=== PATIENT | female | born 1995 | race Caucasian/White ===

== ENCOUNTER 2019-11-27 19:08 | Emergency (ER) | payer BC, MEDICAID ==
[~2019-11-27] VITALS: Ht 160 cm; Wt 61.0 kg
[~2019-11-27 19:08] MED LIST: CITA20TA28 PO; CYCL-394 PO; IBUP-1573 PO
[2019-11-27] MEDS ORDERED: SILV50CR31 TOP (19:23)
[2019-11-27] MEDS ORDERED: CEPH250T PO (19:23)
[2019-11-27] MEDS ORDERED: LIDOcaine/epinephrine/tetracaine TOPICAL sol 3 ML syringe TOP ONE (19:25)
[2019-11-27] MEDS ORDERED: silver sulfadiazine cream 50gm TP ONE (19:25)
[2019-11-27 21:31] VITALS: BP 113/64
== END 2019-11-27 21:32 | disposition home or self-care (01) ==
LOC: ER 19:09
DX: T24.201A Burn of second degree of unspecified site of right lower limb, except ankle and foot, initial encounter (principal); Z79.899 Other long term (current) drug therapy
CPT/HCPCS: 16020; 99283; 99285

== ENCOUNTER 2020-12-12 01:37 | Emergency (ER) | payer MEDICAID ==
[~2020-12-12] VITALS: Ht 160 cm; Wt 81.8 kg
[2020-12-12 02:46] VITALS: BP 115/79
[2020-12-12 03:41] LABS: HCG SERUM QL NEGATIVE
[2020-12-12 03:53] LABS: D-DIMER 0.37 MG/L FEU (0-0.50)
--- NOTE | 2020-12-12 04:18 | NUR ---
PT SEEN, TREAT AND D/C BY PROVIDER
== END 2020-12-12 04:21 | disposition home or self-care (01) ==
LOC: ER 01:38
DX: U07.1 COVID-19 (principal)
CPT/HCPCS: 36415; 71045; 84703; 85379; 99284

== ENCOUNTER 2021-04-09 15:23 | Emergency (ER) | payer MEDICAID ==
[~2021-04-09] VITALS: Ht 157.5 cm; Wt 77.0 kg
[2021-04-09] MEDS ORDERED: METH4TAB3 PO (16:17)
[2021-04-09] MEDS ORDERED: triamcinolone acetonide 40mg/ml inj IM ONE (16:20)
== END 2021-04-09 16:48 | disposition home or self-care (01) ==
LOC: ER 15:24
DX: L23.7 Allergic contact dermatitis due to plants, except food (principal)
CPT/HCPCS: 96372; 99283; J3301

== ENCOUNTER → 2021-11-11 | Day surgery (SDC) | payer MEDICAID ==
[2021-11-03 14:05] LABS: BASOPHILS % (AUTO) 0.6 % (0-1); EOSINOPHILS # (AUTO) 0.1 X10'3 (0-0.9); LYMPHOCYTES # (AUTO) 2.2 X10'3 (1.1-4.8); MEAN CORPUSCULAR HEMOGLOBIN 28.2 PG (27.0-31.0); MEAN CORPUSCULAR HGB CONC 33.5 g/dL (33.0-36.5); MEAN CORPUSCULAR VOLUME 84.2 FL (78-98); MEAN PLATELET VOLUME 9.2 FL (7.4-10.4); MONOCYTES # (AUTO) 0.4 X10'3 (0-0.9); MONOCYTES % (AUTO) 5.7 % (2-12); NEUTROPHILS # (AUTO) 4.5 X10'3 (1.8-7.7); NEUTROPHILS % (AUTO) 61.7 % (42-75); PRE OP HEMATOCRIT 37.9 % (35.0-45.0); PRE OP HEMOGLOBIN 12.7 g/dL (12.0-16.0); PRE OP PLATELET COUNT 243 X10'3 (140-440); RED CELL DISTRIBUTION WIDTH 13.8 % (11.5-14.5)
[2021-11-03 14:18] LABS: ALBUMIN 3.2 G/DL (3.4-5.0); ALBUMIN/GLOBULIN RATIO 0.9 (1.1-1.5); ALKALINE PHOSPHATASE 56 IU/L (46-116); BLOOD UREA NITROGEN 12 MG/DL (7-18); BUN/CREATININE RATIO 15.2 (6.6-38.0); CALCIUM 8.5 MG/DL (8.5-10.1); CHLORIDE 105 MMOL/L (99-107); CREATININE 0.79 MG/DL (0.40-0.90); PRE OP ALT 16 U/L (30-65); PRE OP ANION GAP 7 (8-16); PRE OP AST 14 U/L (10-37); PRE OP BILIRUB, TOTAL 0.2 MG/DL (0.0-1.0); PRE OP GLUCOSE 144 MG/DL (70-104); PRE OP POTASSIUM 4.1 MMOL/L (3.4-5.1); PRE OP SODIUM 140 MMOL/L (135-145); TOTAL CARBON DIOXIDE 28.5 MMOL/L (24-32); TOTAL PROTEIN 6.9 G/DL (6.4-8.2); eGFR 87 ML/MIN
[2021-11-03 14:34] LABS: HCG SERUM QL NEGATIVE
[2021-11-11] VITALS (8 sets, daily range): BP systolic 94–125; BP diastolic 52–80
[~2021-11-11] VITALS: Ht 157.5 cm; Wt 83.0 kg
[~2021-11-11] MED LIST changes: +BIRTH CONTROL; +BUPIVAcaine/PF 2.5 mg/ml (0.25%) 30ml vial ONE; -CITA20TA28 PO; -CYCL-394 PO; +LIDOcaine 1%/PF 5ML 10 MG/ML VIAL ONE; +VALA500T PO; +ceFAZolin inj. 2,000 MG in dextrose 5%-water 100 ML IV ONE; +dexamethasone sod phosphate 4mg/ml inj. ONE; +famotidine 20mg tablet PO ONE; +fentaNYL/PF 50MCG/1 ML 2ML syringe IV PRN; +fentaNYL/PF 50MCG/1 ML 2ML syringe ONE; +glycopyrrolate 0.2mg/ml inj ONE; +hydrALAZINE 20mg/ml inj. IV PRN; +labetalol 20mg/4ml (5mg/ml) syringe IV PRN; +midazolam 1 mg/ML 2ml injection ONE; +morphine 2 MG/ML inj. syringe IV PRN; +morphine 4 MG/ML inj SYRINge IV PRN; +ondansetron/PF 4mg/2ml inj IV PRN; +ondansetron/PF 4mg/2ml inj ONE; +propofol inj 20 ML IV ONE; +ringers solution, lacted 1,000 ML IV SCH; +rocuronium 10mg/ml inj IV ONE
--- NOTE | 2021-11-11 10:14 | NUR ---
Received from OR via [facility] , accompanied by Anesthesiologist JALEN and report given by Anesthesiolgist. PATIENT WITH ONE ABDOMINAL LAP SITE THAT IS CDI. VSS. DENIES PAIN. 20G PIV IN LEFT HAND RUNNING LR AT 100. ALYSSA PAD IN PLACE THAT IS CDI Addendum: 11/11/21 at 1025 by Cristi Martinez RN, RN Amended: Links added.
--- NOTE | 2021-11-11 11:14 | NUR ---
ALL DISCHARGE CRITERIA HAS BEEN MET. VSS, PAIN AT A TOLERABLE LEVEL, VOIDING AND ABLE TO SAFELY AMBULATE AND TRANSFER SELF. IV TAKEN OUT WITHOUT ANY COMPLICATIONS. ALL DISCHARGE INSTRUCTIONS COVERED WITH PATIENT AND ALL QUESTIONS ANSWERED. PATIENT TAKEN OUT VIA WHEELCHAIR TO PERSONAL VEHICLE WHERE FAMILY/FRIEND DROVE PATIENT HOME. Addendum: 11/11/21 at 1125 by Cristi Martinez RN, RN Amended: Links added.
== END | disposition home or self-care (01) ==
LOC: PAS 07:15
PROVIDERS: ATTEND Obstetrics & Gynecology
DX: Z30.2 Encounter for sterilization (principal); Z79.899 Other long term (current) drug therapy; K66.0 Peritoneal adhesions (postprocedural) (postinfection)
CPT/HCPCS: 36415; 58670; 80053; 82948; 84703; 85025; 87811; J0690; J1100; J2250; J2405; J2704; J3010; J3490; J7060; J7120; Z7506; Z7512; A4618; A7000